=== PATIENT | female | born 1970 | race Caucasian/White ===

== ENCOUNTER 2021-11-05 04:04 | Inpatient (IN) | payer OTHER ==
[2021-11-03 17:28] VITALS: BMI 26.1
[2021-11-05 11:13] LABS: PH,URINE 5.5 (5.0-8.0); URINE APPEARANCE CLEAR; URINE BILIRUBIN NEGATIVE (NEGATIVE); URINE COLOR YELLOW; URINE GLUCOSE (UA) NEGATIVE (NEGATIVE); URINE KETONE TRACE (NEGATIVE); URINE LEUK ESTERASE NEGATIVE (NEGATIVE); URINE NITRITE NEGATIVE (NEGATIVE); URINE PROTEIN NEGATIVE (NEGATIVE)
[2021-11-05] MEDS ORDERED: ceFAZolin SODIUM 1 GM VIAL ONE ×2 (11:19→17:39)
[2021-11-05] MEDS ORDERED: LIDOCAINE HCL/PF 2% SDV 5ML VIAL ONE ×2 (11:49→12:04)
[2021-11-05] MEDS ORDERED: PROPOFOL 40 ML ONE ×3 (11:50→15:51)
[2021-11-05] MEDS ORDERED: MIDAZOLAM HCL 2 MG/2 ML SINGLE DOSE VIAL ONE (11:50)
[2021-11-05] MEDS ORDERED: SUCCINYLCHOLINE CHLORIDE 200 MG/10 ML SYRINGE ONE (12:06)
[2021-11-05] MEDS ORDERED: ceFAZolin SODIUM 1 GM VIAL IVPB ONE ×2 (12:53→17:39)
[2021-11-05] MEDS ORDERED: PROPOFOL 140 ML ONE (12:58)
[2021-11-05] MEDS ORDERED: ROCURONIUM BROMIDE 50 MG/5 ML SYRINGE ONE (13:11)
[2021-11-05] MEDS ORDERED: DEXAMETHASONE SOD PHOSPHATE 4 MG/1 ML VIAL ONE (13:23)
[2021-11-05] MEDS ORDERED: ONDANSETRON 4 MG/2 ML VIAL ONE (13:23)
[2021-11-05] MEDS ORDERED: KETAMINE HCL 200 MG/20 ML VIAL ONE (13:26)
[2021-11-05] MEDS ORDERED: HYDROmorphone HCl 2 MG/ML VIAL ONE ×2 (14:51)
[2021-11-05] MEDS ORDERED: PROPOFOL 80 ML ONE (15:09)
[2021-11-05] MEDS ORDERED: PROPOFOL 20 ML ONE (16:55)
[2021-11-05] MEDS ORDERED: METOPROLOL TARTRATE 5 MG/5 ML VIAL ONE (16:57)
[2021-11-05] MEDS ORDERED: oxyCODONE HCL 5 MG TABLET PO PRN ×2 (17:28)
[2021-11-05] MEDS ORDERED: LACTATED RINGERS SOLUTION 1,000 ML/1,000 ML INFUS.BAG IV SCH (17:30)
[2021-11-05] MEDS ORDERED: SODIUM CHLORIDE 0.9% P/F 10 ML VIAL IJ ONE (17:39)
[2021-11-05] MEDS ORDERED: DEXAMETHASONE SOD PHOSPHATE 4 MG/1 ML VIAL IVPUSH PRN (18:09)
[2021-11-05] MEDS ORDERED: PROMETHAZINE HCL 25 MG/1 ML VIAL IVPB PRN (18:09)
[2021-11-05] MEDS ORDERED: PROMETHAZINE HCL 25 MG/1 ML VIAL IVPUSH PRN (18:09)
[2021-11-05] MEDS ORDERED: ONDANSETRON 4 MG/2 ML VIAL IVPUSH PRN (18:09)
[2021-11-05] MEDS ORDERED: HYDROmorphone *PCA* 10MG/50ML DISP.SYRIN ONE (18:27)
[2021-11-05] MEDS ORDERED: INSULIN (NOVOLOG) ASPART 100 UNITS/ML 10ML VIAL SQ ONE (20:14)
[2021-11-05] MEDS: HYDROmorphone *PCA* 10MG/50ML DISP.SYRIN PCA SCH ×2 (20:22→20:35)
[2021-11-05] MEDS: LACTATED RINGERS SOLUTION 1,000 ML IV SCH (20:30)
[2021-11-05] MEDS: INSULIN (LEVEMIR) 100 UNITS/ML UNITS SQ SCH (22:37)
[2021-11-05] MEDS: DOCUSATE SODIUM 100 MG CAPSULE (FP) PO SCH (22:37)
[2021-11-06] MEDS ORDERED: CEFAZOLIN 1 GM/D5W 1 GM/50 ML BAG IVPB SCH (01:30)
[2021-11-06] MEDS: CEFAZOLIN 1 GM in DEXTROSE 5%-WATER - 1 GM/50 ML IVPB IVPB SCH ×3 (01:47→17:42)
[2021-11-06] MEDS ORDERED: ceFAZolin SODIUM 1 GM VIAL ONE (06:00)
[2021-11-06] MEDS: DOCUSATE SODIUM 100 MG CAPSULE (FP) PO SCH ×3 (06:37→21:45)
[2021-11-06] MEDS: INSULIN SLIDING SCALE (NOVOLOG) 1 VIAL SQ SCH ×4 (06:47→21:45)
[2021-11-06 06:59] LABS: HEMATOCRIT 36.6 % (32.4-45.2); HEMOGLOBIN 12.7 GM/dL (10.7-15.3); MCH 31.1 pg (25.7-33.7); MCHC 34.8 g/dl (32.0-36.0); MEAN CELL VOLUME 89.3 fl (80-96); MEAN PLT VOLUME 10.1 fl (7.5-11.1); PLATELET COUNT 154 10^3/uL (134-434); RDW 12.9 % (11.6-15.6); WHITE BLOOD COUNT 15.6 K/mm3 (4.0-10.0)
[2021-11-06] MEDS ORDERED: glipiZIDE 10 MG TABLET (FP) PO SCH (07:00)
[2021-11-06 07:19] LABS: BLOOD UREA NITROGEN 9.2 mg/dL (7-18); CALCIUM 7.9 mg/dL (8.5-10.1); MAGNESIUM 1.7 mg/dL (1.8-2.4)
[2021-11-06 07:22] LABS: PHOSPHOROUS 3.3 mg/dL (2.5-4.9)
[2021-11-06 07:24] LABS: CREATININE 0.3 mg/dL (0.55-1.3)
[2021-11-06] MEDS: ONDANSETRON 4 MG/2 ML VIAL IVPUSH PRN (08:31)
[2021-11-06] MEDS: LACTATED RINGERS SOLUTION 1,000 ML IV SCH ×3 (09:55→18:54)
[2021-11-06] MEDS ORDERED: PATIENT'S OWN MEDICATION (NON-FORMULARY) (Estradiol [Estrace] 1 MG Tablet) PO SCH (10:00)
[2021-11-06] MEDS ORDERED: PATIENT'S OWN MEDICATION (NON-FORMULARY) (Alogliptin Benzoate [Alogliptin] 25 MG Tablet) PO SCH (10:00)
[2021-11-06] MEDS ORDERED: LACTATED RINGERS SOLUTION 1,000 ML/1,000 ML INFUS.BAG IV STA (12:30)
[2021-11-06] MEDS ORDERED: MAGNESIUM 2GM/50ML STERILE WATER IVPB IVPB ONE (13:00)
[2021-11-06] MEDS: INSULIN (LEVEMIR) 100 UNITS/ML UNITS SQ SCH (21:46)
[2021-11-06] MEDS ORDERED: ACETAMINOPHEN 325 MG TABLET (FP) PO PRN (23:01)
[2021-11-07] MEDS: ONDANSETRON 4 MG/2 ML VIAL IVPUSH PRN (00:18)
[2021-11-07] MEDS ORDERED: LACTATED RINGERS SOLUTION 1,000 ML IV SCH (00:27)
[2021-11-07] MEDS ORDERED: HYDROmorphone *PCA* 10MG/50ML DISP.SYRIN PCA SCH (00:27)
[2021-11-07] MEDS ORDERED: ONDANSETRON 4 MG/2 ML VIAL IVPUSH PRN (00:27)
[2021-11-07] MEDS ORDERED: DEXAMETHASONE SOD PHOSPHATE 4 MG/1 ML VIAL IVPUSH PRN (00:27)
[2021-11-07] MEDS ORDERED: PROMETHAZINE HCL 25 MG/1 ML VIAL IVPB PRN (00:27)
[2021-11-07] MEDS ORDERED: oxyCODONE HCL 5 MG TABLET PO PRN ×2 (00:27)
[2021-11-07] MEDS: CEFAZOLIN 1 GM in DEXTROSE 5%-WATER - 1 GM/50 ML IVPB IVPB SCH ×3 (01:32→17:18)
[2021-11-07] MEDS: DOCUSATE SODIUM 100 MG CAPSULE (FP) PO SCH ×3 (06:48→21:16)
[2021-11-07] MEDS ORDERED: glipiZIDE 5 MG TABLET (FP) ONE (06:49)
[2021-11-07] MEDS: INSULIN SLIDING SCALE (NOVOLOG) 1 VIAL SQ SCH ×4 (06:50→21:14)
[2021-11-07] MEDS: glipiZIDE 10 MG TABLET (FP) PO SCH (06:50)
[2021-11-07 10:07] LABS: HEMOGLOBIN 12.6 GM/dL (10.7-15.3); MCH 31.3 pg (25.7-33.7); MEAN CELL VOLUME 89.3 fl (80-96); PLATELET COUNT 141 10^3/uL (134-434); RBC 4.03 M/mm3 (3.60-5.2); RDW 12.6 % (11.6-15.6); WHITE BLOOD COUNT 13.6 K/mm3 (4.0-10.0)
[2021-11-07 11:23] LABS: BLOOD UREA NITROGEN 8.8 mg/dL (7-18); CREATININE 0.3 mg/dL (0.55-1.3); MAGNESIUM 2.3 mg/dL (1.8-2.4); PHOSPHOROUS 1.7 mg/dL (2.5-4.9)
[2021-11-07 14:15] VITALS: RESP 18
[2021-11-07] MEDS ORDERED: POTASSIUM PHOSPHATE 30 MM in SODIUM CHLORIDE 500 ML IVPB ONE (17:24)
[2021-11-07] MEDS ORDERED: INSULIN (NOVOLOG) ASPART 100 UNITS/ML 10ML VIAL ONE (21:04)
[2021-11-07] MEDS: INSULIN (LEVEMIR) 100 UNITS/ML UNITS SQ SCH (21:15)
[2021-11-07] MEDS: HEPARIN NA (PORCINE) 5,000 UNITS/ML 1ML VIAL SQ SCH (21:15)
[2021-11-08] MEDS ORDERED: glipiZIDE 5 MG TABLET (FP) ONE (05:58)
[2021-11-08] MEDS: DOCUSATE SODIUM 100 MG CAPSULE (FP) PO SCH ×3 (06:55→21:25)
[2021-11-08] MEDS: glipiZIDE 10 MG TABLET (FP) PO SCH (06:55)
[2021-11-08] MEDS: INSULIN SLIDING SCALE (NOVOLOG) 1 VIAL SQ SCH ×4 (06:55→21:21)
[2021-11-08] MEDS: HEPARIN NA (PORCINE) 5,000 UNITS/ML 1ML VIAL SQ SCH ×3 (06:55→21:13)
[2021-11-08] MEDS: oxyCODONE HCL 5 MG TABLET PO PRN ×2 (11:35→21:13)
[2021-11-08 12:31] LABS: BASO % 0.2 % (0-2.0); HEMOGLOBIN 12.9 GM/dL (10.7-15.3); LYMPH % 13.6 % (8-40); MCH 30.4 pg (25.7-33.7); MCHC 34.8 g/dl (32.0-36.0); MEAN CELL VOLUME 87.5 fl (80-96); MEAN PLT VOLUME 10.3 fl (7.5-11.1); MONO % 7.8 % (3.8-10.2); NEUT % 78.4 % (42.8-82.8); PLATELET COUNT 189 10^3/uL (134-434); RBC 4.24 M/mm3 (3.60-5.2); RDW 12.8 % (11.6-15.6); WHITE BLOOD COUNT 13.1 K/mm3 (4.0-10.0)
[2021-11-08 12:46] LABS: CALCIUM 8.4 mg/dL (8.5-10.1)
[2021-11-08 12:47] LABS: ALBUMIN 3.5 g/dl (3.4-5.0); BLOOD UREA NITROGEN 9.5 mg/dL (7-18); MAGNESIUM 2.1 mg/dL (1.8-2.4)
[2021-11-08 12:50] LABS: CREATININE 0.3 mg/dL (0.55-1.3); PHOSPHOROUS 1.8 mg/dL (2.5-4.9)
[2021-11-08 12:51] LABS: BILIRUBIN,TOTAL 1.2 mg/dL (0.2-1); TOT PROT 7.3 g/dl (6.4-8.2)
[2021-11-08] MEDS ORDERED: POTASSIUM CHLORIDE ORAL LIQUID 20 MEQ/15 ML PO ONE (16:13)
[2021-11-08] MEDS: NAPH,MB-DB/K PH,MBDB POWDER PACKET PO SCH ×2 (16:31→17:28)
[2021-11-08] MEDS: INSULIN (LEVEMIR) 100 UNITS/ML UNITS SQ SCH (21:25)
[2021-11-09] MEDS: oxyCODONE HCL 5 MG TABLET PO PRN ×2 (00:30→08:01)
[2021-11-09] MEDS ORDERED: glipiZIDE 5 MG TABLET (FP) ONE (05:28)
[2021-11-09] MEDS: HEPARIN NA (PORCINE) 5,000 UNITS/ML 1ML VIAL SQ SCH (05:57)
[2021-11-09] MEDS: DOCUSATE SODIUM 100 MG CAPSULE (FP) PO SCH (06:03)
[2021-11-09] MEDS: glipiZIDE 10 MG TABLET (FP) PO SCH (06:44)
[2021-11-09] MEDS: INSULIN SLIDING SCALE (NOVOLOG) 1 VIAL SQ SCH ×2 (06:44→10:55)
[2021-11-09 09:40] VITALS: BP 147/81; PULSE 95; TEMP 98.5
[2021-11-09 10:00] LABS: BASO % 0.2 % (0-2.0); EOS % 0.1 % (0-4.5); HEMATOCRIT 36.8 % (32.4-45.2); HEMOGLOBIN 12.7 GM/dL (10.7-15.3); MCH 30.8 pg (25.7-33.7); MCHC 34.6 g/dl (32.0-36.0); MEAN CELL VOLUME 89.1 fl (80-96); MEAN PLT VOLUME 10.1 fl (7.5-11.1); MONO % 7.5 % (3.8-10.2); NEUT % 77.2 % (42.8-82.8); PLATELET COUNT 218 10^3/uL (134-434); RBC 4.13 M/mm3 (3.60-5.2); RDW 12.4 % (11.6-15.6); WHITE BLOOD COUNT 11.3 K/mm3 (4.0-10.0)
[2021-11-09 10:28] LABS: CALCIUM 8.5 mg/dL (8.5-10.1)
[2021-11-09 10:29] LABS: ALBUMIN 3.4 g/dl (3.4-5.0); BLOOD UREA NITROGEN 12.9 mg/dL (7-18); MAGNESIUM 2.1 mg/dL (1.8-2.4)
[2021-11-09 10:32] LABS: CREATININE 0.3 mg/dL (0.55-1.3); PHOSPHOROUS 2.6 mg/dL (2.5-4.9)
[2021-11-09 10:33] LABS: BILIRUBIN,TOTAL 1.1 mg/dL (0.2-1); TOT PROT 7.1 g/dl (6.4-8.2)
[2021-11-09] MEDS ORDERED: POTASSIUM CHLORIDE TABS 20 MEQ TABLET.ER (FP) PO ONE (13:00)
== END 2021-11-09 18:04 | disposition home or self-care (01) | DRG 321 ==
LOC: J2C 04:04 → JICU 20:56 → J6S 11-07 00:24
PROVIDERS: ADMIT Neurological Surgery; ATTEND Internal Medicine
PROC: 0RP10AZ Removal of Interbody Fusion Device from Cervical Vertebral Joint, Open Approach (ICD-10-PCS; 2021-11-05)
PROC: 00NW0ZZ Release Cervical Spinal Cord, Open Approach (ICD-10-PCS; 2021-11-05)
PROC: 0RT30ZZ Resection of Cervical Vertebral Disc, Open Approach (ICD-10-PCS; 2021-11-05)
PROC: 0RG40A0 Fusion of Cervicothoracic Vertebral Joint with Interbody Fusion Device, Anterior Approach, Anterior Column, Open Approach (ICD-10-PCS; 2021-11-05)
PROC: 0RG20K1 Fusion of 2 or more Cervical Vertebral Joints with Nonautologous Tissue Substitute, Posterior Approach, Posterior Column, Open Approach (ICD-10-PCS; 2021-11-05)
PROC: 0RG40K1 Fusion of Cervicothoracic Vertebral Joint with Nonautologous Tissue Substitute, Posterior Approach, Posterior Column, Open Approach (ICD-10-PCS; 2021-11-05)
PROC: 0RT50ZZ Resection of Cervicothoracic Vertebral Disc, Open Approach (ICD-10-PCS; 2021-11-05)
PROC: 0RP404Z Removal of Internal Fixation Device from Cervicothoracic Vertebral Joint, Open Approach (ICD-10-PCS; 2021-11-05)
PROC: 0RP104Z Removal of Internal Fixation Device from Cervical Vertebral Joint, Open Approach (ICD-10-PCS; 2021-11-05)
PROC: 4A11X4G Monitoring of Peripheral Nervous Electrical Activity, Intraoperative, External Approach (ICD-10-PCS; 2021-11-05)
PROC: 0RG20A0 Fusion of 2 or more Cervical Vertebral Joints with Interbody Fusion Device, Anterior Approach, Anterior Column, Open Approach (ICD-10-PCS; principal; 2021-11-05 13:19)
DX: M50.31 Other cervical disc degeneration, high cervical region (principal); M96.0 Pseudarthrosis after fusion or arthrodesis; M40.292 Other kyphosis, cervical region; E11.9 Type 2 diabetes mellitus without complications; J95.89 Other postprocedural complications and disorders of respiratory system, not elsewhere classified; J98.11 Atelectasis; Y83.8 Other surgical procedures as the cause of abnormal reaction of the patient, or of later complication, without mention of misadventure at the time of the procedure
CPT/HCPCS: 36415; 71046-TC-FY; 72040-TC; 76000-TC-FY; 80048; 80053; 81003; 82962; 83036; 83735; 84100; 84439; 84443; 85025; 85027; 86850; 86900; 86901; 86922; 94010; 94760; 97116-GP; 97162-GP; C1889; J1644

== ENCOUNTER 2022-12-07 08:24 | Day surgery (SDC) | payer OTHER ==
[2022-12-02 15:35] VITALS: BMI 25.7
[2022-12-07 09:18] VITALS: RESP 20
[2022-12-07 09:57] LABS: BASO % 0.2 % (0-2.0); HEMATOCRIT 40.5 % (32.4-45.2); HEMOGLOBIN 13.9 GM/dL (10.7-15.3); LYMPH % 38.3 % (8-40); MCH 30.8 pg (25.7-33.7); MCHC 34.2 g/dl (32.0-36.0); MEAN CELL VOLUME 89.9 fl (80-96); MEAN PLT VOLUME 11.2 fl (7.5-11.1); MONO % 6.8 % (3.8-10.2); NEUT % 53.7 % (42.8-82.8); PLATELET COUNT 159 10^3/uL (134-434); RBC 4.51 M/mm3 (3.60-5.2); RDW 12.4 % (11.6-15.6); WHITE BLOOD COUNT 6.7 K/mm3 (4.0-10.0)
[2022-12-07 10:00] LABS: INR 0.97 (0.83-1.09); PROTHROMBIN TIME (PATIENT) 11.2 SEC (9.7-13.0)
[2022-12-07 14:48] VITALS: BP 130/85; PULSE 72; TEMP 98
== END 2022-12-07 14:30 | disposition home or self-care (01) ==
LOC: JRADIR 08:24
PROVIDERS: ATTEND Neurological Surgery
PROC: B01BYZZ Fluoroscopy of Spinal Cord using Other Contrast (ICD-10-PCS; principal; 2022-12-07)
DX: M53.82 Other specified dorsopathies, cervical region (principal)
CPT/HCPCS: 36415; 62305; 72125-TC; 72128-TC; 72131-TC; 72270-TC-FY; 84703; 85025; 85610